=== PATIENT | female | born 1995 | race Caucasian/White ===

== ENCOUNTER 2016-05-13 21:04 | Emergency (ER) | payer SELFPAY ==
[2016-05-13 21:43] VITALS: TEMP 98.8; BMI 24.1
[2016-05-13 22:00] LABS: AUTOMATED BASOPHIL 0.8 % (0-2); AUTOMATED NEUTROPHIL 58.3 % (45-76)
[2016-05-13 22:01] LABS: AUTOMATED MONOCYTE 9.9 % (3-10); MPV 9.3 fL (7.4-10.4)
[2016-05-13] MEDS ORDERED: PANTOPRAZOLE 40 MG VIAL IV ONE (22:06)
[2016-05-13] MEDS ORDERED: NS 1,000 ML IV ONE (22:06)
[2016-05-13] MEDS ORDERED: METHYLPREDNISOLONE 125 MG/2 ML VIAL IV ONE (22:07)
[2016-05-13] MEDS ORDERED: ONDANSETRON HCL 4 MG/2 ML VIAL IV ONE (22:07)
--- NOTE | 2016-05-13 22:11 | EDPRACDOC ---
- General Information Chief Complaint: Abdominal Pain Stated Complaint: ABDOMINAL PAIN - HX OF CROHNS Time Seen by Provider: 05/13/16 22:07 Information Source: Patient Mode Of Arrival: Car Home Medications: Home Medications Methylprednisolone [Medrol] 4 mg PO DAILY #21 tab.ds.pk 05/13/16 Promethazine [Phenergan] 25 mg PO Q6 PRN #20 tab 05/13/16 Allergies/Adverse Reactions: Allergies Allergy/AdvReac Type Severity Reaction Status Date / Time No Known Allergies Allergy Verified 05/13/16 21:43 - History of Present Illness Onset: 3 days HPI: h/o Crohn's no prior surgeries and not taking any medications currently. c/o uper BD pains sharp on and off some heartburn and feels like her Crohns other than location which is typically lower ABD. pain for 3 days now. no back pain. no F/C. N/V "some" today with mild nausea now. currently constipated took laxatives last night. no back pain. pain mod in severity. Pain Location: Reports: Epigastric Pain Context: Reports: Spontaneous. Denies: While Eating Pain Quality: Reports: Burning, Cramping Pain Radiation: Reports: No Radiation Last Menstrual Period: 04/2016 : No Adult Abdominal History: Denies: Abdominal Surgery Modifying Factors: improves with: Nothing. worse with: Position Female Associated Signs & Symptoms: Reports: Nausea, Other (current menses). Denies: Melena, Vaginal Discharge Oral Intake: Normal Urinary Output: Normal ED Past Medical History - History Reviewed Yes Nurses notes reviewed and agree except as marked EDM Review of Systems - Review of Systems ROS Negative Except as Marked: Yes All systems reviewed and were negative except as marked - Physical Exam Constitutional: Alert (Awake), No apparent distress Oriented to: Time, Person, Place Last recorded Vital Signs: Last Vital Signs Temp 98.8 F 05/13/16 21:39 Pulse 73 05/13/16 22:52 Resp 20 05/13/16 22:52 BP 106/54 L 05/13/16 22:52 Pulse Ox 99 05/13/16 22:52 Oxygen Pulse Oxygen Saturation 99 O2 Device Room Air Oxygen Flow Rate Fraction of Inspired Oxygen ( FIO2) - HEENT Head: Normal ( normocephalic) Eye Exam: Normal (PERRL, EOMI, Sclera white) Oropharynx: Normal (Pharynx:Moist without exudate,Gums-no swelling) Nose: No Symptoms Reported (septum midline) Neck: Normal (FROM, trachea at midline) - Respiratory/Cardiovascular Respiratory: Normal - CTA (BBS clear to auscultation without adventitious sounds ) Cardiovascular: Normal (RRR without murmur, gallop or rub) - GI Auscultation: Normal (NABS) Palpation: Normal (Soft,No rebound or guarding, non distended) Tenderness: Epigastric. negative: RUQ, LUQ, RLQ, LLQ Abad's Sign: Negative - Musculoskeletal Back: Normal (Non-Tender) Extremities: Normal (Normal tone, Pulses 2+ No cyanosis or edema, FROM) - Integumentary Skin: Normal, Warm, Dry Lymphatics: Normal (no adenopathy) - Neurologic Memory Impaired: Normal Motor Function: Normal (Normal tone, Pulses 2+ No cyanosis or edema, FROM) Cranial Nerve: Normal (CN II-X11 intact sensation, strength 5/5) Cerebellar: Normal Mood Description: Normal Perception: Normal - Re-evaluation Re-evaluation 1 Re-evaluation Time: 23:49 (feeling much better, no acute ABD, requests RX on 4 dollar list, will take OTC Miralax. GI referral. ) - Results 05/13/16 21:46 05/13/16 21:46 WBC 5.5 xk/uL (3.8-10.8) 05/13/16 21:46 RBC 4.86 xM/uL (4.20-5.40) 05/13/16 21:46 Hgb 13.8 g/dL (12.0-16.0) 05/13/16 21:46 Hct 41.1 % (36-47) 05/13/16 21:46 MCV 85 fL (81-99) 05/13/16 21:46 MCH 28.3 pg (27-32) 05/13/16 21:46 MCHC 33.5 g/dl (33-36) 05/13/16 21:46 RDW 14.5 % (11.5-14.5) 05/13/16 21:46 Plt Count 206 xk/uL (130-400) 05/13/16 21:46 MPV 9.3 fL (7.4-10.4) 05/13/16 21:46 Neut % (Auto) 58.3 % (45-76) 05/13/16 21:46 Lymph % (Auto) 29.0 % (17-44) 05/13/16 21:46 [place] % (Auto) 9.9 % (3-10) 05/13/16 21:46 Eos % (Auto) 2.0 % (0-5) 05/13/16 21:46 Baso % (Auto) 0.8 % (0-2) 05/13/16 21:46 Absolute Neuts (auto) 3.19 xk/uL (1.7-8.2) 05/13/16 21:46 Absolute Lymphs (auto) 1.60 xk/uL (0.65-4.75) 05/13/16 21:46 Sodium 140 mEq/L (137-146) 05/13/16 21:46 Potassium 3.6 mEq/L (3.5-5.1) 05/13/16 21:46 Chloride 101 mEq/L (98-107) 05/13/16 21:46 Carbon Dioxide 27 mMOL/L (22-33) 05/13/16 21:46 Anion Gap 16 mEq/L (8-16) 05/13/16 21:46 BUN 13 MG/DL (7-17) 05/13/16 21:46 Creatinine 0.80 MG/DL (0.52-1.04) 05/13/16 21:46 Estimated GFR (MDRD) > 60 mL/min (>=60) 05/13/16 21:46 Glucose 101 MG/DL (70-99) H 05/13/16 21:46 Calculated Osmolality 269 MOs/Kg (270-290) L 05/13/16 21:46 Calcium 9.0 MG/DL (8.4-10.2) 05/13/16 21:46 Total Bilirubin 0.4 MG/DL (0.2-1.3) 05/13/16 21:46 AST 25 IU/L (14-36) 05/13/16 21:46 ALT 31 IU/L (9-52) 05/13/16 21:46 Alkaline Phosphatase 50 IU/L (38-126) 05/13/16 21:46 Total Protein 7.3 G/DL (6.3-8.2) 05/13/16 21:46 Albumin 4.1 G/DL (3.5-5.0) 05/13/16 21:46 Lipase 64 U/L (23-300) 05/13/16 21:46 Urine Color Yellow 05/13/16 22:05 Urine Clarity Clear 05/13/16 22:05 Urine pH 6.0 (5.0-8.0) 05/13/16 22:05 Ur Specific [place] 1.010 (1.003-1.035) 05/13/16 22:05 Urine Protein 1+ (NEG/TRACE) H 05/13/16 22:05 Urine Glucose (UA) Neg (NEGATIVE) 05/13/16 22:05 Urine Ketones Neg (NEGATIVE) 05/13/16 22:05 Urine Occult Blood 1+ (NEG/TRACE) H 05/13/16 22:05 Urine Nitrite Neg (NEGATIVE) 05/13/16 22:05 Urine Bilirubin Neg (NEGATIVE) 05/13/16 22:05 Urine Urobilinogen <2.0 MG/DL (0-1) 05/13/16 22:05 Ur Leukocyte Esterase Neg (NEGATIVE) 05/13/16 22:05 Urine RBC 5-10 (0-5) H 05/13/16 22:05 Urine WBC 0-2 (0-5) 05/13/16 22:05 Ur Epithelial Cells 1+ 05/13/16 22:05 Urine Bacteria Few (NEG/FEW) 05/13/16 22:05 Urine Mucus Mod (NEG/OCC) H 05/13/16 22:05 Lab Results 05/13/16 05/13/16 05/13/16 22:05 21:46 21:46 WBC 5.5 RBC 4.86 Hgb 13.8 Hct 41.1 MCV 85 MCH 28.3 MCHC 33.5 RDW 14.5 Plt Count 206 MPV 9.3 Neut % (Auto) 58.3 Lymph % (Auto) 29.0 [place] % (Auto) 9.9 Eos % (Auto) 2.0 Baso % (Auto) 0.8 Absolute Neuts (auto) 3.19 Absolute Lymphs (auto) 1.60 Sodium 140 Potassium 3.6 Chloride 101 Carbon Dioxide 27 Anion Gap 16 BUN 13 Creatinine 0.80 Estimated GFR (MDRD) > 60 Glucose 101 H Calculated Osmolality 269 L Calcium 9.0 Total Bilirubin 0.4 AST 25 ALT 31 Alkaline Phosphatase 50 Total Protein 7.3 Albumin 4.1 Lipase 64 Urine Color Yellow Urine Clarity Clear Urine pH 6.0 Ur Specific [place] 1.010 Urine Protein 1+ H Urine Glucose (UA) Neg Urine Ketones Neg Urine Occult Blood 1+ H Urine Nitrite Neg Urine Bilirubin Neg Urine Urobilinogen <2.0 Ur Leukocyte Esterase Neg Urine RBC 5-10 H Urine WBC 0-2 Ur Epithelial Cells 1+ Urine Bacteria Few Urine Mucus Mod H Decision Time to Discharge: 23:49 - Departure Yes I personally saw and evaluated the patient. Disposition: Home Condition: Improved Final Diagnosis: Abdominal pain Instructions: Acute Abdominal Pain (ED) Education/Counseling Given To: Patient Education/Counseling Given Regarding: Diagnosis, Treatment, Follow Up Referrals: None,No Provider [Primary Care Provider] - One Week Mason Hernandez MD [Staff Provider No Admit] - One Week Prescriptions: Methylprednisolone [Medrol] 4 mg PO DAILY #21 tab.ds.pk Promethazine [Phenergan] 25 mg PO Q6 PRN #20 tab PRN Reason: Nausea/Vomiting Additional Instructions: return here for any fever, severe pain or any worsening condition. take pepcid as needed for any heart burn and follow up with GI specialist
[2016-05-13 22:13] LABS: BLOOD UREA NITROGEN 13 MG/DL (7-17); CALCULATED OSMOLALITY 269 MOs/Kg (270-290); CHLORIDE 101 mEq/L (98-107); GLUCOSE 101 MG/DL (70-99); SODIUM LEVEL 140 mEq/L (137-146); TOTAL PROTEIN 7.3 G/DL (6.3-8.2)
[2016-05-13 22:28] LABS: LEUKOCYTES/URINE NEG (NEGATIVE); NITRITE/URINE NEG (NEGATIVE); URINE OCCULT BLOOD 1+ (NEG/TRACE); WBC/URINE 0-2 (0-5)
[2016-05-13] MEDS ORDERED: FENTANYL 100 MCG/2 ML VIAL IV ONE (22:54)
[2016-05-14 00:06] VITALS: BP 120/60; PULSE 94
== END 2016-05-14 00:04 | disposition home or self-care (01) ==
LOC: ED 21:04
DX: R10.9 Unspecified abdominal pain (principal)
CPT/HCPCS: 36415; 80053; 81001; 81025; 83690; 85025; 96361; 96374; 96375; 99283; J2405; J2930; J3010; S0164

== ENCOUNTER 2016-06-07 00:42 | Emergency (ER) | payer SELFPAY ==
[2016-06-07 00:56] VITALS: BP 123/56; PULSE 93; TEMP 97.7; BMI 26.5
[2016-06-07] MEDS ORDERED: OXYCODONE HCL 5 MG TABLET PO ONE ×2 (00:57→02:43)
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
== END 2016-06-07 02:49 | disposition home or self-care (01) ==
LOC: ED 00:42
DX: S00.03XA Contusion of scalp, initial encounter (principal); S50.02XA Contusion of left elbow, initial encounter; S80.02XA Contusion of left knee, initial encounter; V49.40XA Driver injured in collision with unspecified motor vehicles in traffic accident, initial encounter; Y93.9 Activity, unspecified; Y92.410 Unspecified street and highway as the place of occurrence of the external cause
CPT/HCPCS: 70450; 71020; 72125; 73080; 73564; 99283; J3490

== ENCOUNTER 2016-06-11 15:15 | Emergency (ER) | payer SELFPAY ==
[2016-06-11 15:20] VITALS: BP 128/67; PULSE 86; TEMP 98.7
[2016-06-11 15:28] VITALS: BMI 24.9
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
== END 2016-06-11 16:04 | disposition home or self-care (01) ==
LOC: ED 15:15 → EDMC 16:04
DX: M79.1 Myalgia (principal); V49.9XXA Car occupant (driver) (passenger) injured in unspecified traffic accident, initial encounter; Y93.9 Activity, unspecified; Y92.410 Unspecified street and highway as the place of occurrence of the external cause
CPT/HCPCS: 99283